=== PATIENT | male | born 1950 | race Caucasian/White ===

== ENCOUNTER 2018-07-29 09:04 | Outpatient (REF) | payer MEDICARE, SELFPAY ==
[2018-07-29 12:50] LABS: HCT 49.8 % (40.0-50.0); Mean Corp. HGB Concentration 34.1 g/dL (32.0-36.0); Mean Corpuscular Hemoglobin 30.3 pg (27.0-33.0); Mean Corpuscular Volume 88.8 fL (80-95); Mean Platelet Volume 10.7 fL (8.0-11.0); Platelet Count 188 x1000/uL (130-400); RBC 5.61 m/cumm (4.50-6.00); RBC Distribution Width 14.5 % (11.8-14.1); White Blood Cell Count 5.54 k/cumm (4.4-10.8)
[2018-07-29 13:20] LABS: ALT 32 U/L (12-78); AST 13 U/L (15-37); Alkaline Phosphatase 103 U/L (46-116); Anion Gap 9.7 mmol/L (3-11); BUN 13 mg/dL (7-18); Bilirubin, Total 0.5 mg/dL (0.2-1.0); CO2 28.3 mmol/L (21.0-32.0); CREATININE 1.12 mg/dL (0.70-1.30); Calcium 9.7 mg/dL (8.5-10.1); Chloride 105 mmol/L (98-107); Cholesterol 224 mg/dL (50-200); Glucose 85 mg/dL (70-100); HDL Cholesterol 56 mg/dL (40-60); LDL CHOLESTEROL 153 mg/dL (<100); Potassium 4.1 mmol/L (3.5-5.1); Sodium 143 mmol/L (136-145); Total Protein 7.5 g/dL (6.4-8.2); Triglyceride 114 mg/dL (30-150)
== END 2018-07-29 09:24 ==
LOC: NCHCN 09:04
PROVIDERS: PCP Internal Medicine; Visit Provider Internal Medicine
DX: I10 Essential (primary) hypertension (principal)
CPT/HCPCS: 80053; 80061; 83721; 85027

== ENCOUNTER 2018-09-05 13:33 | Outpatient (REF) | payer MEDICARE, SELFPAY ==
[2018-09-05 14:15] LABS: Anion Gap 9.3 mmol/L (3-11); BUN 22 mg/dL (7-18); CO2 27.7 mmol/L (21.0-32.0); Calcium 9.1 mg/dL (8.5-10.1); Chloride 103 mmol/L (98-107); Glucose 99 mg/dL (70-100); Potassium 3.9 mmol/L (3.5-5.1); Sodium 140 mmol/L (136-145)
== END 2018-09-05 13:53 ==
LOC: NCHCN 13:33
PROVIDERS: PCP Internal Medicine; Visit Provider Internal Medicine
DX: I10 Essential (primary) hypertension (principal); F41.9 Anxiety disorder, unspecified
CPT/HCPCS: 80048

== ENCOUNTER 2020-05-31 19:02 | Outpatient (REF) | payer MEDICARE, SELFPAY ==
[2020-05-31 13:22] LABS: Anion Gap 7.3 mmol/L (3-11); BUN 20 mg/dL (7-18); CO2 28.7 mmol/L (21.0-32.0); Calcium 9.3 mg/dL (8.5-10.1); Chloride 103 mmol/L (98-107); Glucose 102 mg/dL (74-106); Sodium 139 mmol/L (136-145)
== END 2020-05-31 19:22 ==
LOC: NCHCN 19:02
PROVIDERS: PCP Internal Medicine; Visit Provider Internal Medicine
DX: I10 Essential (primary) hypertension (principal)
CPT/HCPCS: 80048

== ENCOUNTER 2021-06-10 15:03 | Outpatient (REF) | payer MEDICARE, SELFPAY ==
[2021-06-10 15:55] LABS: BUN 24 mg/dL (7-18); CREATININE 0.9 mg/dL (0.70-1.30); Chloride 104 mmol/L (98-107); Glucose 86 mg/dL (74-106); Potassium 3.7 mmol/L (3.5-5.1); Sodium 140 mmol/L (136-145)
== END 2021-06-10 15:04 | disposition home or self-care (01) ==
LOC: NCHCN 15:03
PROVIDERS: PCP Internal Medicine; Visit Provider Family Medicine
DX: I10 Essential (primary) hypertension (principal)
CPT/HCPCS: 80048

== ENCOUNTER 2022-08-09 12:07 | Outpatient (REF) | payer MEDICARE, SELFPAY ==
[2022-08-09 17:36] LABS: Anion Gap 7.7 mmol/L (3-11); BUN 21 mg/dL (7-18); CO2 29.3 mmol/L (21.0-32.0); CREATININE 1.1 mg/dL (0.70-1.30); Calcium 9.3 mg/dL (8.5-10.1); Chloride 108 mmol/L (98-107); Estimated GFR 71.32 (mL/min/1.73m2); Glucose 98 mg/dL (74-106); Potassium 4.3 mmol/L (3.5-5.1); Sodium 145 mmol/L (136-145)
== END 2022-08-09 12:08 | disposition home or self-care (01) ==
LOC: NCHCN 12:07
PROVIDERS: PCP Internal Medicine; Visit Provider Family Medicine
DX: I10 Essential (primary) hypertension (principal)
CPT/HCPCS: 80048

== ENCOUNTER 2022-10-19 10:34 | Emergency (ER) | payer MEDICARE, SELFPAY ==
[2022-10-19] VITALS (19 sets, daily range): BP systolic 120–157; BP diastolic 61–100; PULSE 57–91; RESP 15–28; TEMP 37.2; O2SAT 94–97
--- NOTE | 2022-10-19 10:30 | RT.EKG_ITS ---
APPROVED REPORT Exam: Resting ECG Reason for Exam: Chest Pain Patient Location: E HR:90 bpm ECG Measurements Heart Rate 90 AXIS TX 152 P 41 QRSd 90 QRS 41 QT 373 T 37 QTc 458 Conclusion Sinus rhythm...normal P axis, V-rate 60- 99 sinus rhythm, normal axis, normal intervals, non ischemic
--- NOTE | 2022-10-19 11:00 | DI.CT_ITS ---
Exam(s) CT CHEST PE CTA EXAM: CT CHEST PE CTA CLINICAL HISTORY: right anterior inferior chest pain, hx DVT. TECHNIQUE: Imaging Protocol: CT angiography of the chest was performed using pulmonary embolus milly col. Multi planar reconstructions were performed. CONTRAST MATERIAL: Intravenous: Omnipaque 350 Contrast volume: 100 cc COMPARISON: CT CHEST FOR PULMONARY EMBOLUS from 10/09/2017 FINDINGS: CHEST: PULMONARY ARTERIES: There are extensive bilateral intraluminal filling defects consistent with pulmon delmer emboli in both lungs. The most proximal extent of filling defects is in the left main pulmonary artery. There is involvement of multiple vessels in both lower lobes. Also right middle lobe and thomason perior lingular segment left lung. Relative sparing of the upper lobes. LUNGS: No evidence of pulmonary infarct nor pleural effusions. Symmetrical increased markings are no uday in both lung bases. No pneumothorax. No focal findings in the trachea and mainstem bronchi. . There are no pleural effusions. MEDIASTINUM: There is no hilar nor mediastinal adenopathy. Visualized thyroid unremarkable. CARDIAC: Heart size is upper normal. There is no pericardial effusion.Caliber of the thoracic aorta is within normal limits. No evidence of dissection. There is no significant shift of the interventri cular septum. No reflux of IV contrast into the IVC. PARTIALLY VISUALIZED UPPERMOST ABDOMEN: No splenomegaly. No adrenal masses. OSSEOUS: No significant osseous lesions.No fractures.. IMPRESSION: 1. Positive study for extensive bilateral pulmonary emboli involving both lower lobes as well as righ t middle lobe and lingular segment left lung. Most proximal extent of intraluminal thrombus is in th e left main pulmonary artery.. 2. No evidence of pulmonary infarction. No pleural effusions. 3. No evidence of aortic dissection nor pericardial effusion. No obvious right heart failure. Called by myself to ER physician RADIATION DOSE DELIVERED: 467.7mGy.cm Total DLP DATA REPOSITORY: All CT scans at this facility are submitted to the National Radiology Data Registry (NRDR) Dose Index Registry (DIR) with the [employer] (A[employer]). RADIATION OPTIMIZATION: All CT scans at this facility use at least one of these dose optimization te chniques: automated exposure control; mA and/or kV adjustment per patient size (includes targeted exa ms where dose is matched to clinical indication); or iterative reconstruction.
--- NOTE | 2022-10-19 11:00 | DI.US_ITS ---
Exam(s) US LOWER EXTREMITY VENOUS LT EXAM: US LOWER EXTREMITY VENOUS LT CLINICAL HISTORY: leg swelling, hx of DVT TECHNIQUE: Grayscale, color, and doppler imaging of the deep venous system of the left lower extremi ty was performed. COMPARISON: No exams were available for comparison FINDINGS: There is no evidence of intraluminal thrombus and there is normal compression and augmentation demons trated within the common femoral vein, femoral vein, and popliteal vein. However, there is significant thrombus in the ipsilateral greater saphenous vein in the proximal mid thigh for a total of 20 cm length and extending to a distance of 3 cm proximal to the saphenofemoral junction. The saphenous femoral junction itself is patent At and below the level of the knee there is no evidence of intraluminal thrombus in the deep veins in terrogated, including the popliteal vein and posterior tibial vein. IMPRESSION: 1. No evidence of DVT but there is significant thrombus measuring 20 cm length within the greater sa phenous vein in the thigh, this extending to 3 cm short of the saphenofemoral junction. Called to ER. DATA REPOSITORY:
[2022-10-19] MEDS: Aspirin 81 MG CHEW 324 MG CH (11:20)
[2022-10-19] MEDS: Ondansetron 4 MG/2 ML VIAL IVP (11:20)
[2022-10-19] MEDS: Ketorolac 15 MG/ML VIAL IVP (11:20)
[2022-10-19] MEDS: MORPHine 4 MG/ML SYR 2 MG IVP (11:20)
[2022-10-19 11:23] LABS: Abs Immature Grans 0.03 10^3/uL (0.0-0.06); Absolute Basophil Count 0.04 10^3/uL (0.0-0.2); Absolute Eosinophil Count 0.18 10^3/uL (0.0-0.7); Absolute Lymphocyte Count 0.89 10^3/uL (1.2-3.4); Absolute Monocyte Count 0.53 10^3/uL (0.1-0.8); Absolute Neutrophil Count 6.76 10^3/uL (1.2-6.7); Basophils % 0.5; Eosinophils % 2.1; HCT 48.7 % (40.0-50.0); HGB 16.5 g/dL (13.5-17.5); Immature Grans % 0.4; Lymphocytes % 10.6; MCH 30.3 pg (27.0-33.0); MCHC 33.9 % (32.0-36.0); MCV 89 fL (80-95); MPV 9.8 fL (8.0-11.0); Monocytes % 6.3; Neutrophils % 80.1; Platelet Count 197 10^3/uL (130-400); RBC 5.45 10^6/uL (4.36-5.78); RDW 13.3 % (11.8-14.1); RDW-SD 43.9 fL; WBC 8.43 10^3/uL (4.4-10.8)
[2022-10-19] MEDS: Normal Saline 500 ML 1000 ML IV (11:28)
--- NOTE | 2022-10-19 11:34 | ED.GENADUL_ITS ---
Discharge Plan Disposition Patient Disposition: Home Condition: Improving Discharge Details Clinical Impression: Pulmonary emboli, Thrombosis of left saphenous vein Primary Care Provider: Solo Gunter ED Provider: Serg Mckeon Home Meds and New Rx's Prescriptions: New Eliquis DVT-PE Treat 30D Start 5 mg (74 tabs) tablets,dose pack See Rx Instructions .ROUTE .COMPLEX Qty: 74 0RF Rx Instructions: orally per package directions No Action lisinopril-hydrochlorothiazide 1 EACH tablet 1 tab PO DAILY diltiazem HCl 120 MG capsule,extended release 24hr 120 mg PO DAILY Discharge Instructions Instructions: Pulmonary Embolism (ED), Deep Vein Thrombosis (ED) Additional Instructions: Please follow-up within the next week with your primary care physician to discuss further treatment and testing regarding your diagnosis of blood clot and pulmonary embolism. Please return to the emergency department for any worsening symptom Medical Decision Making 72-year-old male history of prior DVT no longer on anticoagulation presents with right anterior inferior chest discomfort over the past 2 to 3 days spasm-like in nature intermittent nonexertional. Associate with mild shortness of breath. Unsure if patient had history of PE in the past. Chronically swelling of left lower extremity for which patient uses compression stocking. Patient is hemodynamically stable nontachycardic not hypoxic. Intermittent spasmodic pain to chest wall, nonreproducible with palpation. Lungs clear bilaterally. Speaking in full sentences. Consider muscle spasm versus costochondritis versus pleurisy versus PE versus ACS versus less likely aortic pathology. Low suspicion for pneumothorax or pneumonia. Will obtain screening labs CT chest, ultrasound left lower extremity. Analgesia anti-inflammatory. Close reassessment 13: 24 evidence of PE bilateral, no evidence of heart strain given normal Trope BNP CT and clinical examination. Patient started on Eliquis. Counseled regarding need for close follow-up. Will follow with primary care physician. Encourage to pursue further testing for hypercoagulable state given this is the second or third thromboembolic event patient has had in his life. Patient given strict return precautions for any worsening symptoms. No chest pain or shortness of breath feeling better after medications. Patient is hemodynamically stable. Patient's pulmonary embolism severity index is 82 points class II low risk HPI General Date/Time Provider Initiated Documentation: 10/19/22 10:53 . HPI Narrative: 72-year-old male with history of DVT, no longer on anticoagulation presents with chest pain right lower anterior chest described as a spasming sensation over the past 2 days intermittent in nature. Mild shortness of breath. Chronic swelling of left lower extremity for which she wears a compression stocking. Recent long distance car travel from [place] Related Data Home Medications Medication Instructions Recorded Confirmed diltiazem HCl 120 mg 120 mg PO DAILY 10/09/17 10/19/22 capsule,extended release 24 hr lisinopril 10 1 tab PO DAILY 10/09/17 10/19/22 mg-hydrochlorothiazide 12.5 mg tablet apixaban 5 mg (74 tabs) tablets in See Rx Instructions PO .COMPLEX 10/19/22 a dose pack (Eliquis DVT-PE Treat #74 dose pk 30D Start) Previous Rx's Medication Instructions Recorded apixaban 5 mg (74 tabs) tablets in See Rx Instructions PO .COMPLEX 10/19/22 a dose pack (Eliquis DVT-PE Treat #74 dose pk 30D Start) Allergies Allergy/AdvReac Type Severity Reaction Status Date / Time Penicillins Allergy Severe Swelling/Ed Unverified 10/19/22 10:47 gayle General Stated Complaint: Chest Pain JOSEPH: 2 Review of Systems Narrative: Review of Systems Constitutional: negative Eyes: negative ENT: negative Cardiovascular: Chest pain Respiratory: negative Gastrointestinal: negative : negative Musculoskeletal: negative Skin: negative Neurologic: negative Psych: negative PFSH All Active Problems (Updated 10/19/22 @ 13:30 by Serg Mckeon MD) Pulmonary emboli (Chronic) Thrombosis of left saphenous vein (Acute) Social History Smoking/Tobacco Use Status: Never Smoking risk assessment performed?: Yes Alcohol Intake: current Alcohol Intake frequency: 0-2 drinks per day Alcohol type: beer Substance use type: does not use Do you feel safe at home: Yes Do you feel safe in your relationship?: Yes Exam Narrative Exam Narrative: Physical Examination General: alert, awake, cooperative, mildly uncomfortable HEENT: normocephalic, atraumatic; PERRL, EOM intact, conjunctiva normal; no nasal discharge; moist mucous membranes, oral and pharyngeal mucosa normal, tolerating secretions Neck: supple, trachea midline; full ROM Chest: normal to inspection Respiratory: normal respiratory effort, speaking in full sentences, clear to auscultation, no wheezing, rales or rhonchi Cardiac: regular rate, regular rhythm, S1S2 intact, no murmurs rubs or gallops GI: abdomen soft, non-tender, non-distended; no palpable mass or hepatosplenomegaly Skin: no lesions, rashes or trauma appreciated Neuro: AAOx3, normal speech, moving all extremities Extremities: Mild edema to left lower extremity compared to right Psych: Appropriate mood and affect Course Vital Signs Vital signs: Vital Signs Temperature 37.2 C 10/19/22 10:39 Pulse 91 H 10/19/22 10:39 Respiratory Rate 24 10/19/22 10:39 Blood Pressure 157/100 H 10/19/22 10:39 Pulse Oximetry 97 10/19/22 10:39 Temperature 37.2 C 10/19/22 10:39 Temperature Source Skin 10/19/22 10:39 Pulse 91 H 10/19/22 10:39 Respiratory Rate 24 10/19/22 10:39 Respiratory Effort Short of Breath, Incrsd Work of Breathing 10/19/22 10:48 Blood Pressure 157/100 H 10/19/22 10:39 Pulse Oximetry 97 10/19/22 10:39 Oxygen Delivery Method Room Air 10/19/22 10:39 Oxygen Flow Rate 0 10/19/22 10:39 Pain Level 8 10/19/22 10:39 Comment did not take aspirin this morning 10/19/22 10:39 Lab/Test Results Lab/Test Results: Laboratory Tests Range/Units 10/19/22 10:52 WBC (4.4-10.8) 10^3/uL 8.43 RBC (4.36-5.78) 10^6/uL 5.45 Hgb (13.5-17.5) g/dL 16.5 Hct (40.0-50.0) % 48.7 MCV (80-95) fL 89 MCH (27.0-33.0) pg 30.3 MCHC (32.0-36.0) % 33.9 RDW (11.8-14.1) % 13.3 Plt Count (130-400) 10^3/uL 197 MPV (8.0-11.0) fL 9.8 Immature Gran % 0.4 Neutrophils % 80.1 Lymphocytes % 10.6 Monocytes % 6.3 Eosinophils % 2.1 Basophils % 0.5 Nucleated RBC % (0.0-0.3) % 0.0 Absolute Neutrophils (1.2-6.7) 10^3/uL 6.76 H Absolute Lymphocytes (1.2-3.4) 10^3/uL 0.89 L Absolute Monocytes (0.1-0.8) 10^3/uL 0.53 Absolute Eosinophils (0.0-0.7) 10^3/uL 0.18 Absolute Basophils (0.0-0.2) 10^3/uL 0.04 PAWSS Have you Been Recently Intoxicated or Drunk Within the Last 30 days?: No Have you Ever Experienced Previous Episodes of Alcohol Withdrawal?: No Have you ever Experienced Withdrawal Seizures?: No Have you ever Experienced Delirium Tremens(DT)s?: No Have you ever undergone Alcohol Rehabilitation Treatment (i.e, inpt ot outpatient treatment programs)?: No Have you ever Experienced Blackouts?: No Have you ever Combined Alcohol with other Downers within the last 90 days?: No Have you ever Combined Alcohol with any other Substance of Abuse during the last 90 days?: No Positive Blood Alcohol level on Presentation? [PCS.BAL]: No Evidence of Increased Autonomic Activity (i.e. HR>120, tremor, sweating, agitation, nausea)?: No Result: 0
[2022-10-19 11:48] LABS: ALT 24 U/L (16-63); AST 13 U/L (15-37); Albumin 3.7 g/dL (3.4-5.0); Alkaline Phosphatase 108 U/L (46-116); Anion Gap 8.1 mmol/L (3-11); BUN 14 mg/dL (7-18); Bilirubin, Total 0.7 mg/dL (0.2-1.0); CO2 28.9 mmol/L (21.0-32.0); Calcium 9.2 mg/dL (8.5-10.1); Chloride 103 mmol/L (98-107); Estimated GFR 79.97 (mL/min/1.73m2); Glucose 97 mg/dL (74-106); NT-proBNP 169 pg/mL (<300); Potassium 3.9 mmol/L (3.5-5.1); Sodium 140 mmol/L (136-145); Troponin I < 50 ng/L (<or=60)
[2022-10-19] MEDS: Normal Saline - Diluent 50 ML VIAL IJ (11:48)
[2022-10-19] MEDS: Normal Saline Flush 10 ML SYR IVP (11:48)
[2022-10-19] MEDS: Omnipaque 350 MG/ML 500 ML BTL-Imaging package IJ (11:49)
[2022-10-19 11:50] LABS: PTT Activated 27.4 sec (21.5-31.9); Prothrombin Time 10.1 sec (9.3-11.0)
[2022-10-19] MEDS: Apixaban 5 MG TAB 10 MG PO (12:50)
--- NOTE | 2022-10-19 14:06 | NUR.NOTE ---
Nursing Note: Lab questioned a repeat trop for this patient
== END 2022-10-19 13:38 | disposition home or self-care (01) ==
PROVIDERS: Emergency Provider Emergency Medicine; PCP Internal Medicine
DX: I26.99 Other pulmonary embolism without acute cor pulmonale (principal); I82.812 Embolism and thrombosis of superficial veins of left lower extremity; R06.02 Shortness of breath; R07.9 Chest pain, unspecified
CPT/HCPCS: 36415; 71275; 80053; 93005; 96361; 96374; 96375; 99285; 83880; 84484; 85025; 85610; 85730; 93010; 93971; 99284; J1885; J2270; J2405

== ENCOUNTER 2023-08-06 09:51 | Outpatient (REF) | payer MEDICARE, SELFPAY ==
[2023-08-06 15:24] LABS: ALT 31 U/L (16-63); AST 11 U/L (15-37); Albumin 4.1 g/dL (3.4-5.0); Alkaline Phosphatase 90 U/L (46-116); Anion Gap 9.6 mmol/L (3-11); BUN 17 mg/dL (7-18); Bilirubin, Total 0.7 mg/dL (0.2-1.0); CO2 27.4 mmol/L (21.0-32.0); CREATININE 1.1 mg/dL (0.70-1.30); Calcium 9.6 mg/dL (8.5-10.1); Calculated LDL 158 mg/dL (<100); Chloride 106 mmol/L (98-107); Cholesterol 241 mg/dL (<200); Estimated GFR 70.88 (mL/min/1.73m2); Glucose 106 mg/dL (74-106); HDL Cholesterol 69 mg/dL (40-60); Potassium 4.9 mmol/L (3.5-5.1); Sodium 143 mmol/L (136-145); Total Protein 7.4 g/dL (6.4-8.2); Triglyceride 71 mg/dL (<150)
== END 2023-08-06 09:52 | disposition home or self-care (01) ==
LOC: NCHCN 09:51
PROVIDERS: PCP Family Medicine; Visit Provider Family Medicine
DX: E78.5 Hyperlipidemia, unspecified (principal)
CPT/HCPCS: 80053; 80061

== ENCOUNTER 2024-08-11 15:13 | Outpatient (REF) | payer MEDICARE, SELFPAY ==
[2024-08-11 21:26] LABS: HCT 49.7 % (40.0-50.0); HGB 16.6 g/dL (13.5-17.5); MCH 30.1 pg (27.0-33.0); MCHC 33.4 % (32.0-36.0); MCV 90 fL (80-95); MPV 9.8 fL (8.0-11.0); Platelet Count 270 10^3/uL (130-400); RBC 5.52 10^6/uL (4.36-5.78); RDW 13.3 % (11.8-14.1); RDW-SD 44.3 fL; WBC 5.02 10^3/uL (4.4-10.8)
[2024-08-11 22:51] LABS: ALT 26 U/L (16-63); AST 15 U/L (15-37); Alkaline Phosphatase 88 U/L (46-116); Anion Gap 7.6 mmol/L (3-11); BUN 22 mg/dL (7-18); Bilirubin, Total 0.6 mg/dL (0.2-1.0); CO2 30.4 mmol/L (21.0-32.0); Calculated LDL 150 mg/dL (<100); Chloride 106 mmol/L (98-107); Cholesterol 237 mg/dL (<200); Estimated GFR 78.98 (mL/min/1.73m2); Glucose 109 mg/dL (74-106); HDL Cholesterol 73 mg/dL (>or=40); Potassium 4.8 mmol/L (3.5-5.1); Sodium 144 mmol/L (136-145); Total Protein 7.3 g/dL (6.4-8.2); Triglyceride 70 mg/dL (<150)
== END 2024-08-11 15:14 | disposition home or self-care (01) ==
LOC: NCHCN 15:13
PROVIDERS: PCP Family Medicine; Visit Provider Family Medicine
DX: I10 Essential (primary) hypertension (principal); Z00.00 Encounter for general adult medical examination without abnormal findings; E78.5 Hyperlipidemia, unspecified
CPT/HCPCS: 80053; 80061; 85027